=== PATIENT | female | born 1955 | race Hispanic/Latino ===

== ENCOUNTER → 2024-10-03 | Outpatient (CLI) | payer OTHER, MEDICARE ==
[2024-10-03 21:50] VITALS: PULSE 64; RESP 12
[2024-10-03 22:30] VITALS: PULSE 71; RESP 10
[2024-10-03 23:00] VITALS: PULSE 74; RESP 12
[2024-10-03 23:34] VITALS: PULSE 76; RESP 12
[2024-10-04] VITALS (11 sets, daily range): PULSE 61–82; RESP 10–14
== END | disposition home or self-care (01) ==
LOC: SLP 19:39
PROVIDERS: ATTEND Student in an Organized Health Care Education/Training Program
DX: G47.33 Obstructive sleep apnea (adult) (pediatric) (principal)
CPT/HCPCS: 95810

== ENCOUNTER → 2024-10-19 | Outpatient (CLI) | payer OTHER, MEDICARE ==
[2024-10-19 22:29] VITALS: PULSE 62; RESP 14
[2024-10-19 22:51] VITALS: PULSE 68; RESP 13
[2024-10-19 23:00] VITALS: PULSE 64; RESP 12
[2024-10-19 23:09] VITALS: PULSE 63; RESP 13
[2024-10-19 23:24] VITALS: PULSE 61; RESP 13
[2024-10-19 23:48] VITALS: PULSE 64; RESP 12
[2024-10-20] VITALS (11 sets, daily range): PULSE 55–72; RESP 12–21
== END | disposition home or self-care (01) ==
LOC: SLP 20:42
PROVIDERS: ATTEND Student in an Organized Health Care Education/Training Program
DX: G47.33 Obstructive sleep apnea (adult) (pediatric) (principal)
CPT/HCPCS: 95811

== ENCOUNTER → 2024-11-10 | Outpatient (CLI) | payer OTHER, MEDICARE ==
--- NOTE | 2024-11-10 11:33 | HMCIMG ---
MAMMO SCREENING BILATERAL HISTORY: Screening mammogram. COMPARISON: None TECHNIQUE: Bilateral screening mammogram with CAD was performed with craniocaudal and mediolateral oblique projections. FINDINGS: Bilateral dystrophic calcifications are seen. There are scattered areas of fibroglandular density. There is no evidence of a dominant mass, or suspicious microcalcification. There is no evidence of nipple retraction or skin thickening. IMPRESSION: 1. Stable mammogram. Patient was entered into a reminder system with a target due date for their next mammogram. BI-RADS: CATEGORY 2: BENIGN FINDINGS Recommend monthly self breast exam as well as annual clinical examination. A negative x-ray should not delay biopsy if a dominant or clinically suspicious mass is present, since 8-10% of cancers are not identified by mammography. Dense breasts particularly, may obscure an underlying neoplasm. Some of these may be detected clinically and therefore, clinical examination is an essential part of breast evaluation.
== END | disposition home or self-care (01) ==
LOC: CANPRECLI → RAH 09:58
PROVIDERS: ATTEND Internal Medicine
DX: Z12.31 Encounter for screening mammogram for malignant neoplasm of breast (principal); R92.323 Mammographic fibroglandular density, bilateral breasts
CPT/HCPCS: 77067